=== PATIENT | male | born 1995 | race Caucasian/White ===

== ENCOUNTER 2017-04-07 09:45 | Emergency (ER) | payer OTHER ==
--- NOTE | 2017-04-07 13:00 | UC ---
Lower Extremity/Ankle HPI - HPI Summary HPI Summary: Posterior and lateral ankle pain after injury during hockey game yesterday. there is swelling. He has been icing and elevating. Hurts more to bear wt. - History of Current Complaint Stated Complaint: RT ANKLE INJ Time Seen by Provider: 04/07/17 12:36 Hx Obtained From: Patient Onset/Duration: Sudden Onset, Lasting Hours Severity Initially: Moderate Severity Currently: Moderate Aggravating Factor(s): Standing, Ambulation Alleviating Factor(s): Rest, Elevation Able to Bear Weight: No - Allergies/Home Medications Allergies/Adverse Reactions: Allergies Allergy/AdvReac Type Severity Reaction Status Date / Time No Known Allergies Allergy Verified 04/07/17 13:10 Home Medications: Home Medications NK [No Home Medications Reported] 04/07/17 [History Confirmed 04/07/17] PMH/Surg Hx/FS Hx/Imm Hx Previously Healthy: Yes - Surgical History Surgical History: None - Family History Known Family History: Positive: Other - no related ankle history. - Social History Occupation: Student Substance Use Type: None Smoking Status (MU): Never Smoked Tobacco Review of Systems Musculoskeletal: Arthralgia All Other Systems Reviewed And Are Negative: Yes Physical Exam Triage Information Reviewed: Yes Appearance: Well-Appearing, Well-Nourished, Pain Distress - He walks in with crutches. Some pain with exam. Vital Signs Reviewed: Yes Eyes: Positive: Conjunctiva Clear ENT: Positive: Normal ENT inspection Neck: Positive: Supple, Nontender, No Lymphadenopathy Respiratory: Positive: Lungs clear, Normal breath sounds, No respiratory distress, No accessory muscle use. Negative: Respiratory distress, Decreased breath sounds, Accessory muscle use, Crackles, Rhonchi, Stridor Cardiovascular: Positive: Brisk Capillary Refill Abdomen Description: Negative: Guarding Musculoskeletal Exam: Other - NO fibula pain. There is tenderness at proximal achilles. There is no defect. THompsons neg. He is able to ankle flex actively against most of his wt. There is lateral joint swelling. MIld lateral malleolus tenderness. NO laxity with anterior drawer or talar tilt. Procedures - Splinting Pre-Made Type: kenya wrap. Pre-Proc Neuro Vasc Exam: normal Post-Proc Neuro Vasc Exam: normal Diagnostics - Radiology No standard instances Radiology Interpretation Completed By: Radiologist - possible tendon rupture. Lower Extremity Course/Dx - Course Course Of Treatment: Ankle x ray. There is no obvious defect of the achilles. However due to significant pain and tenderness and he says he heard a pop, we are concerned for partial achilles tear. He agrees to non wt bear and he comes in on crutches. We will send him to Dr. Valdivia for f/u. - Differential Dx/Diagnosis Provider Diagnoses: Ankle sprain. possible achilles injury. Discharge - Discharge Plan Condition: Good Disposition: HOME Patient Education Materials: Ankle Sprain (DC), Tendon Rupture (ED), Swollen Joint (ED) Forms: *Physical Education Release Referrals: Non Staff,Doctor [Primary Care Provider] - Additional Instructions: POssible tendon or ligament injury. Please follow up with Dr. valdivia. No wt bearing until seen by him. Ice and elevation until then.
[2017-04-07 13:10] VITALS: BP 117/61
--- NOTE | 2017-04-07 13:34 | RAD ---
Indication: Posterior RIGHT ankle pain following injury one day ago. Comparison: No relevant prior exams available on the [facility] [place] [facility] [place]. Technique: AP, mortise, and lateral views RIGHT ankle. Report: Soft tissue swelling most prominent over the lateral malleolus. Negative for fracture. Talocrural joint effusion. IMPRESSION: Given magnitude of lateral soft tissue swelling and presence of talocrural joint effusion consider lateral supporting ligament injury.
== END 2017-04-07 13:57 | disposition home or self-care (01) ==
LOC: UCCORT 09:45
DX: S93.401A Sprain of unspecified ligament of right ankle, initial encounter (principal); X58.XXXA Exposure to other specified factors, initial encounter; Y93.22 Activity, ice hockey; Y92.838 Other recreation area as the place of occurrence of the external cause
CPT/HCPCS: 99203; G0463